=== PATIENT | male | born 1990 | race Two or more races ===

== ENCOUNTER 2018-11-12 11:42 | Emergency (ER) | payer SELFPAY ==
[~2018-11-12] VITALS: Ht 162.6 cm; Wt 93.0 kg
--- NOTE | 2018-11-12 11:53 | NUR ---
PT RECEIVED ETHIOPIAN SPEAK A&0X3, TOELRATING ROOM AIR WITHOUT DISTRESS, REPORTS 10/10 CHEST PAIN AND PALPITATION, NON RADIATING. PT REPORTS METH USE THIS AM. WITHOUT OTHER COMPLAINT AT THIS TIME. PT WITH IVC AT R AC SALINE FLUSH PATENT. EKG COMPLETE.
[2018-11-12] MEDS ORDERED: LORAZEPAM INJ 2 MG/ML VIAL IV ONE (12:00)
[2018-11-12] MEDS ORDERED: IV NS 0.9% 1,000 ML BAG IV ONE (12:00)
[2018-11-12] MEDS ORDERED: LORAZEPAM INJ 2 MG/ML VIAL ONE (12:05)
--- NOTE | 2018-11-12 12:30 | NUR ---
PT EATING LUNCH AT BEDSIDE. DENIES CHEST PAIN OR COMPLAINT AT THIS TIME.
--- NOTE | 2018-11-12 12:34 | NUR ---
MSRN. PT REPORTING DISCOMFORT TO IVC AT R AC. REQUESTING CHANGE. IVC D/C AND NEW IVC G#20 PLACED AT L AC.
[2018-11-12 13:43] VITALS: BP 150/75
--- NOTE | 2018-11-13 12:00 | NUR ---
MEDICATION NOTE. 1MG OF ATIVAN WAS WASTED 11/12 WITH CALL SPECIALIST SANTHOSH WHO WAS GUIDING ME DURING THIS SHIFT IN ER. PHARMACY RICHARD INFORMED ME TODAY 11/13 THE WASTE DOCUMENTATION DID NOT SAVE OR I COMPLETED INCORRECTLY. THE MEDICATION WAS ADMINISTERED PER RX AND REMAINDER DISPOSED OF.
== END 2018-11-12 13:45 | disposition home or self-care (01) ==
LOC: ER 11:43
DX: F15.10 Other stimulant abuse, uncomplicated (principal); R00.0 Tachycardia, unspecified
CPT/HCPCS: 93005; 96374; 99283; A4606; J2060; J7030 ×2; Z7610